=== PATIENT | male | born 1950 | race Caucasian/White ===

== ENCOUNTER 2020-11-20 08:35 | Outpatient (NON) | payer MEDICARE, BC, SELFPAY ==
[2020-11-20 19:23] LABS: SARS-CoV-2 RNA PCR Negative
== END 2020-11-20 08:36 ==
PROVIDERS: PCP Emergency Medicine; Visit Provider Emergency Medicine
DX: R11.0 Nausea (principal); R51.9 Headache, unspecified; Z20.822 Contact with and (suspected) exposure to COVID-19
CPT/HCPCS: C9803; U0003

== ENCOUNTER 2024-06-18 18:43 | Emergency (ER) | payer MEDICARE, BC, SELFPAY ==
[2024-06-18 19:09] VITALS: BP 98/67; PULSE 105; RESP 20; TEMP 36.2; O2SAT 96
--- NOTE | 2024-06-18 19:42 | PC.NURSE ---
Pt states he has been waiting for an hour and has decided to leave. Pt educated to return to nearest ED if symptoms worsen.
== END 2024-06-18 20:29 | disposition left against medical advice (07) ==
LOC: ANHED 19:53
DX: M79.603 Pain in arm, unspecified (principal)
CPT/HCPCS: 99199